=== PATIENT | male | born 1970 | race African-American/Black ===

== ENCOUNTER 2016-08-12 08:34 | Emergency (ER) | payer SELFPAY ==
[~2016-08-12] VITALS: Ht 195.6 cm; Wt 105.0 kg
[2016-08-12] MEDS ORDERED: ACETAMINOPHEN WITH CODEINE 300/30MG TABLET PO ONE (11:00)
[2016-08-12 12:40] VITALS: BP 138/77
== END 2016-08-12 13:30 | disposition home or self-care (01) ==
LOC: ER 08:51
DX: K64.4 Residual hemorrhoidal skin tags (principal); K59.00 Constipation, unspecified; Z88.8 Allergy status to other drugs, medicaments and biological substances; Z90.49 Acquired absence of other specified parts of digestive tract
CPT/HCPCS: 99283